=== PATIENT | male | born 1950 | race Two or more races ===

== ENCOUNTER 2018-02-24 09:41 | Emergency (ER) | payer OTHER ==
[2018-02-24 09:51] VITALS: BP 155/84; PULSE 68; TEMP 98.7; BMI 21.9
[2018-02-24] MEDS ORDERED: KETOROLAC TROMETHAMINE 60 MG/2 ML VIAL IM ONE (10:26)
[2018-02-24] MEDS ORDERED: KETOROLAC TROMETHAMINE 60 MG/2 ML VIAL ONE (10:28)
--- NOTE | 2018-02-24 11:34 | PDOC ---
History of Present Illness - General Chief Complaint: Pain, Acute Stated Complaint: PAIN,LT SIDE Time Seen by Provider: 02/24/18 10:26 History Source: Patient Exam Limitations: No Limitations - History of Present Illness Initial Comments: 02/24/18 11:29 68 yr male with c/o chronic low back pain the past 3 days pain to the left hip radiates to the buttock and down the leg no urinary or bowel dysfunction pain is worse with sitting to standing, Past History - Past Medical History Allergies/Adverse Reactions: Allergies Allergy/AdvReac Type Severity Reaction Status Date / Time No Known Allergies Allergy Verified 02/24/18 09:46 Home Medications: Ambulatory Orders Methylprednisolone [Medrol Dose Main] 4 mg PO ASDIR #21 tablet 02/24/18 COPD: No HTN: Yes Hypercholesterolemia: Yes - Suicide/Smoking/Psychosocial Hx Smoking Status: No Smoking History: Never smoked Have you smoked in the past 12 months: No Number of Cigarettes Smoked Daily: 0 Information on smoking cessation initiated: No Hx Alcohol Use: No Drug/Substance Use Hx: No *Physical Exam - Vital Signs Last Vital Signs Temp Pulse Resp BP Pulse Ox 98.7 F 68 20 155/84 99 02/24/18 09:41 02/24/18 09:41 02/24/18 09:41 02/24/18 09:41 02/24/18 09:41 - Physical Exam General Appearance: Yes: Nourished, Appropriately Dressed HEENT: positive: EOMI, JOSIE, Normal ENT Inspection, TMs Normal, Pharynx Normal Neck: positive: Supple. negative: Tender Respiratory/Chest: positive: Lungs Clear, Normal Breath Sounds Cardiovascular: positive: Regular Rhythm, Regular Rate Musculoskeletal: positive: Normal Inspection, Decreased Range of Motion, Other ( chronic ttp lumbar spine paraspinal soft tissue , no rashes ). negative: CVA Tenderness, CVA Tenderness (R), CVA Tenderness (L) Extremity: positive: Normal Capillary Refill, Normal Inspection, Other ( positive SLR left side at 30 degrees, nv intact skin warm intact no swelling ). negative: Swelling, Calf Tenderness, Erythema, Inflammation Integumentary: positive: Normal Color, Dry, Warm Neurologic: positive: Fully Oriented, Alert, Normal Mood/Affect, Normal Response , Motor Strength 5/5 ED Treatment Course - RADIOLOGY Radiology Studies Ordered: Category Date Time Status HIP & PELVIS-LEFT [RAD] Stat Radiology 02/24/18 10:26 Taken - Medications Given in the ED: ED Medications Discontinued Medications Generic Name Dose Route Start Last Admin Trade Name Gilberto PRN Reason Stop Dose Admin Ketorolac Tromethamine 60 mg 02/24/18 10:26 02/24/18 10:31 Toradol Injection - IM 02/24/18 10:27 60 mg ONCE ONE Administration Medical Decision Making - Medical Decision Making 02/24/18 11:32 cc: left buttock to leg pain worse with sitting to standing no abd pain neg saddle anesthesia neg urine or bowel dysfunction xray is negative, pt had tenderness to the left hip area will give toradol pt states pain has decreased from 12/12 to 310 after toradol will dc with medrol dose pack strict follow up with PMD *DC/Admit/Observation/Transfer Diagnosis at time of Disposition: Sciatica of left side - Discharge Dispostion Disposition: HOME Condition at time of disposition: Improved - Prescriptions Prescriptions: Methylprednisolone [Medrol Dose Main] 4 mg PO ASDIR #21 tablet - Referrals - Patient Instructions Printed Discharge Instructions: DI for Back Pain With Sciatica Additional Instructions: take the medrol dose pack as directed, you can start it today apply heating pad or warm compresses to the lower left back for 20 minutes every 3-4hrs return to the ER for any worsening symptoms - Post Discharge Activity
== END 2018-02-24 11:39 | disposition home or self-care (01) ==
LOC: JERFT 09:41
PROC: 3E0233Z Introduction of Anti-inflammatory into Muscle, Percutaneous Approach (ICD-10-PCS; principal; 2018-02-24)
DX: M54.42 Lumbago with sciatica, left side (principal)
CPT/HCPCS: 73523-TC-FY; 96372; 99281-25